=== PATIENT | female | born 1985 | race Hispanic/Latino ===

== ENCOUNTER 2018-11-17 15:26 | Outpatient (CLI) | payer OTHER | END 2018-11-17 15:27 | disposition home or self-care (01) | LOC: LABHHL 15:26 | PROVIDERS: ATTEND Surgery | DX: N60.02 Solitary cyst of left breast (principal) | CPT/HCPCS: 88112 ==

== ENCOUNTER 2018-12-06 09:07 | Outpatient (CLI) | payer OTHER | END 2018-12-06 09:08 | disposition home or self-care (01) | LOC: LABHHL 09:07 | PROVIDERS: ATTEND Surgery | DX: N64.1 Fat necrosis of breast (principal) | CPT/HCPCS: 88305 ==

== ENCOUNTER 2019-02-16 05:41 | Day surgery (SDC) | payer OTHER ==
[~2019-02-16 05:41] MED LIST: LACTATED RINGERS 1,000 ML IV SCH
[2019-02-16] MEDS ORDERED: MIDAZOLAM 2 MG/2 ML INJ IV NR (06:00)
[2019-02-16] MEDS ORDERED: GABAPENTIN 300 MG CAP PO NR (06:00)
[2019-02-16] MEDS ORDERED: ceFAZolin/Water 2 GM/20 ML 2 GM/20 ML SYRINGE IV NR (06:00)
[2019-02-16] MEDS ORDERED: ACETAMINOPHEN 500 MG TAB PO NR (06:00)
--- NOTE | 2019-02-16 07:33 | Anesthesia Consultation ---
Anesthesia Consult and Med Hx Date of service: 02/16/19 - Airway Anesthetic Teeth Evaluation: Good ROM Head & Neck: Adequate Mental/Hyoid Distance: Adequate Mallampati Class: Class I Intubation Access Assessment: Good - Pre-Operative Health Status ASA Pre-Surgery Classification: ASA2 Proposed Anesthetic Plan: General, MAC - Pulmonary Hx Smoking: Yes (LIGHT SOCIAL SINCE AGE 15) - Central Nervous System Hx Psychiatric Problems: Yes - Endocrine Hx Renal Disease: Yes (h/o acute kidney failure after taking ibuprofen) - Other Systems Hx Alcohol Use: Yes (OCCA) Hx Substance Use: Yes (MARIJUANA) Hx Cancer: No
--- NOTE | 2019-02-16 07:34 | Anesthesia Day of Surgery ---
Anesthesia Day of Surgery - Day of Surgery Patient Examined: Yes Patient H&P Reviewed: Yes Patient is NPO: Yes
[2019-02-16] MEDS ORDERED: FAMOTIDINE 20 MG/2 ML INJ IV NR (07:35)
[2019-02-16] MEDS ORDERED: PROPOFOL 200 MG/20 ML VIAL IV ONE (07:47)
[2019-02-16] MEDS ORDERED: HYDROmorphone 1 MG/1 ML INJ ONE (07:47)
[2019-02-16] MEDS ORDERED: HYDROmorphone 1 MG/1 ML INJ IV PRN (07:47)
[2019-02-16] MEDS ORDERED: LIDOCAINE MPF (2%) 20 MG/1 ML VIAL 5 ML ONE (07:48)
[2019-02-16] MEDS ORDERED: LIDOCAINE (1%) 10 MG/1 ML VIAL 20 ML MDV ONE (07:51)
[2019-02-16] MEDS ORDERED: BUPIVACAINE/PF (0.25%) 2.5 MG/ML 30 ML VIAL INFILTRATI ONE ×3 (07:51→08:20)
[2019-02-16] MEDS ORDERED: BUPIVACAINE/PF (0.5%) 5 MG/1 ML 30 ML VIAL INFILTRATI ONE (07:51)
[2019-02-16] MEDS ORDERED: SCOPOLAMINE TRANSDERMAL PATCH 72 HR TD NR (08:00)
[2019-02-16] MEDS ORDERED: SODIUM CHLORIDE 0.9% IRR 1,500 ML BOTTLE IR ONE (08:20)
[2019-02-16] MEDS ORDERED: LIDOCAINE (1%) 10 MG/1 ML VIAL 20 ML MDV INFILTRATI ONE ×2 (08:20)
[2019-02-16] MEDS ORDERED: GENTAMICIN 40 MG/ML VIAL 2 ML ONE (08:37)
[2019-02-16] MEDS ORDERED: GENTAMICIN 40 MG/ML VIAL 2 ML IV ONE (08:40)
[2019-02-16] MEDS ORDERED: PHENYLEPHRINE/NS 1,000 MCG/10 ML SYRINGE (OR USE) IV ONE (09:08)
[2019-02-16] MEDS ORDERED: LACTATED RINGERS 1,000 ML ONE (09:09)
[2019-02-16] MEDS ORDERED: ONDANSETRON 4 MG/2 ML INJ ONE (09:17)
--- NOTE | 2019-02-16 09:31 | Short Stay Summary ---
Short Stay Documentation Date of service: 02/16/19 - History H&P: obtained from office - Allergies and Medications Current Medications: Allergies ibuprofen Allergy (Verified 02/16/19 07:25) Abdominal Pain (Acute Kidney failure) Sulfa (Sulfonamide Antibiotics) Allergy (Verified 02/16/19 07:25) Itching Home Medications Medication Instructions Recorded Confirmed Last Taken Type Dextroamphetamine/Amphetamine 10 mg PO TID 02/15/19 02/15/19 Unknown History [Dextroamp-Amphetamin 10 mg Tab] HYDROcodone/APAP 5-325 [Harviell 1 each PO Q6HR PRN #12 tablet 02/16/19 Unknown Rx 5/325] cephALEXin [Keflex] 500 mg PO Q6HR 5 Days #20 capsule 02/16/19 Unknown Rx Active Medications Acetaminophen (Tylenol) 1,000 mg PO ONCE NR Stop: 02/16/19 16:00 Famotidine (Pepcid) 20 mg IV ONCE NR Stop: 02/16/19 13:00 Gabapentin (Gabapentin) 300 mg PO PREOP NR Stop: 02/16/19 16:00 Hydromorphone HCl (Dilaudid) 0.5 mg IV Q10MIN PRN PRN Reason: Pain , Severe (7-10) Stop: 02/16/19 20:00 Cefazolin Sodium (Ancef/Sterile Water 2 Gm/20 Ml) 2 gm in 20 mls @ 80 mls/hr IV PREOP NR; Protocol Stop: 02/16/19 21:00 Lactated Ringer's (Lactated Ringers) 1,000 mls @ 100 mls/hr IV DIRECT NETO Midazolam HCl (Versed) 2 mg IV PREOP NR Stop: 02/16/19 23:00 Scopolamine (Transderm-Scop) 1 each TD PREOP NR Stop: 02/16/19 13:00 - Brief post op/procedure progress note Date of procedure: 02/16/19 Pre-op diagnosis: Left Breast Mass Post-op diagnosis: same Procedure: Left Breast Mass Excisional Biopsy Anesthesia: MARANDA Surgeon: CADEN RODRIGUEZ Bottom Filler: WELLINGTON KRISHNAN Estimated blood loss: minimal Pathology: list Specimen disposition: to lab Condition: stable - Disposition Condition at discharge: Stable Disposition: DC-01 TO HOME OR SELFCARE Short Stay Discharge Plan Follow up with: RIVKA MANUEL [Other] - 7 Days Prescriptions: cephALEXin [Keflex] 500 mg PO Q6HR 5 Days #20 capsule HYDROcodone/APAP 5-325 [Harviell 5/325] 1 each PO Q6HR PRN #12 tablet PRN Reason: Pain
--- NOTE | 2019-02-16 09:33 | Operative Report ---
Operative Report Operative Report: Operative Report: Date of Service: February 16, 2019 Preoperative diagnosis: Left breast mass of the lower outer quadrant Postoperative diagnosis: Same Procedure: Left breast mass excisional biopsy of the lower outer quadrant Surgeon: Tangela Gutierrez M.D. Plant Taxonomy Teacher: Annie Reed M.D. Findings: Left breast mass around the 5 o'clock position 2 cm from the nipple with excisional biopsy performed Complications: None Drains: None Estimated blood loss: Minimal, less then 25 cc Disposition: PACU in good condition Indication for operative procedure: This is a 33-year-old lady seen recently with findings of left breast mass around the 5:00 position 1-2 cm from the nipple. Aspiration was performed with decrease in size but persistent and purulent cyst contents and thoughts of an infected cyst. Given persistence, ultrasound guided needle core biopsy was performed with findings of probable abscess. Given persistent pain and irregular mass, recommendations were to proceed with an excisional biopsy. Patient wanted mass excised as well. She completed 2 courses of antibiotics with no significant change in mass. Patient wished to proceed with the above procedure. The patient was procedure in detail: The patient was taken to the operating room and was laid supine. General anesthesia was administered. The lef breast mass was palpable at the 5 o'clock position 2 cm from the nipple. The right breast was prepped and draped in the normal sterile operative fashion. Timeout was performed. Ultrasound was used as well to identify the area of concern. A periareolar breast incision around the 6:00 position was made with a 15 blade knife with dissection taken down to the subcutaneous tissues. First began raising inferior and superior flaps. The mass was encountered and was dissected free with the aid of the Bovie cautery. Upon excision, purulent-like drainage was noted with additional tissue taken more superiorly to include area of concern. The specimen was sent to radiology with mass present and clip not seen- most likely was suctioned during surgery and mass then sent to pathology. Hemostasis was then obtained using the Bovie cautery. Breast cavity was anesthesized with 1% lidocaine and quarter percent marcaine. The breast cavity was then irrigated with antibiotic solution and suctioned. The deep breast tissues were approximated and closed using interrupted 3-0 Vicryl and skin brought together and closed using a running 4-0 Monocryl followed by dermabond. She tolerated surgery very well and was awakened from anesthesia without any complication and transported to PACU in good condition.
[2019-02-16] MEDS ORDERED: HYDROcodone/ACETAMINOPHEN 5-325 MG TAB PO PRN (10:30)
[2019-02-16 10:38] VITALS: BP 112/75
--- NOTE | 2019-02-16 11:40 | Post Anesthesia Evaluation ---
- Post Anesthesia Evaluation Patient Participated: Yes Airway Patent: Yes Stable Respiratory Function: Yes Nausea/Vomiting: No Temp > 96.8F: Yes Pain Manageable: Yes Adequeate Hydration: Yes Anesthesia Complications: No
--- NOTE | 2019-02-19 11:48 | Mammography Report ---
SPECIMEN RADIOGRAPH LEFT BREAST INDICATION: POST EXC BX. COMPARISON: 01/25/2019 FINDINGS: Unremarkable breast tissue with no identifiable localizer clip. IMPRESSION: 1. No significant finding. Since no localizer clip is identified, I question whether the targeted les ion was excised.. Signer Name: Andrae Benavidez MD Signed: 02/19/2019 11:44 AM Workstation Name: [id number]
== END 2019-02-16 11:15 | disposition home or self-care (01) ==
LOC: OR 05:41
PROVIDERS: ATTEND Surgery
DX: N63.23 Unspecified lump in the left breast, lower outer quadrant (principal); F17.210 Nicotine dependence, cigarettes, uncomplicated; N64.89 Other specified disorders of breast; Z88.2 Allergy status to sulfonamides; Z88.8 Allergy status to other drugs, medicaments and biological substances; Z79.899 Other long term (current) drug therapy; Z98.890 Other specified postprocedural states; Z72.89 Other problems related to lifestyle; Z80.1 Family history of malignant neoplasm of trachea, bronchus and lung; Z80.8 Family history of malignant neoplasm of other organs or systems
CPT/HCPCS: 19120; 76098; 88305; J0690; J1170; J1580; J2250; J2370; J2405; J2704; J7120; 88307